=== PATIENT | female | born 1960 | race American Indian/Alaskan Native ===

== ENCOUNTER 2023-10-26 08:16 | Inpatient (IN) ==
[2023-10-26] MEDS ORDERED: IOPAMIDOL 100 ML BOTTLE IV ONE (08:17)
[2023-10-26 09:45] LABS: Basophils # (Auto) 0.03 K/mcL (0.00-0.30); Basophils % (Auto) 0.6 % (0.0-2.0); Eosinophils # (Auto) 0.07 K/mcL (0.00-0.70); Eosinophils % (Auto) 1.4 % (0.0-7.0); Hematocrit 50.3 % (34.1-44.9); Hemoglobin 16.2 g/dL (11.2-15.7); Lymphocytes # (Auto) 1.51 K/mcL (1.50-4.80); Lymphocytes % (Auto) 30.4 % (15.5-49.0); Mean Cell Volume 95.4 fL (80.0-100.0); Mean Corpuscular HGB Conc 32.2 g/dL (31.0-36.0); Mean Platelet Volume 11.9 fL (8.8-12.5); Monocytes # (Auto) 0.36 K/mcL (0.10-0.90); Monocytes % (Auto) 7.2 % (1.0-12.0); Neutrophils % (Auto) 60.2 % (38.0-78.0); Platelet Count 134 K/mcL (140-440); RBC 5.27 M/mcL (3.59-5.38); Red Cell Distribution Width 16.3 % (11.5-14.5)
[2023-10-26 09:57] LABS: ALT/SGPT < 5 U/L (<40); AST/SGOT 34 U/L (<32); Albumin 4.2 gm/dL (3.2-5.2); Albumin/Globulin Ratio 1.1 (1.0-2.3); Alkaline Phosphatase 93 U/L (39-117); Bilirubin,Total 2.2 mg/dL (0.1-1.0); Blood Urea Nitrogen 14 mg/dL (8-23); Calcium 9.3 mg/dL (8.6-10.4); Carbon Dioxide 23 mmol/L (22-30); Chloride 106 mmol/L (96-108); Globulin 3.7 gm/dL (2.2-3.7); Glomerular Filtration Rate 101; Glucose 90 mg/dL (70-105)
[2023-10-26 10:49] LABS: INR 1.2 (0.9-1.1); Partial Thromboplastin Time 36.3 sec (20.0-37.0); Prothrombin Time 15.9 sec (11.9-14.5)
[2023-10-26] MEDS: FUROSEMIDE 20 MG/2 ML VIAL IV ONE (11:41)
[2023-10-26] MEDS: SENNOSIDES/DOCUSATE SODIUM 1 TAB TABLET PO ONE (11:41)
[2023-10-26] MEDS ORDERED: ACETAMINOPHEN 325 MG TABLET PO PRN (17:04)
[2023-10-26] MEDS ORDERED: ONDANSETRON 4 MG/2 ML VIAL IV PRN (17:04)
[2023-10-26] MEDS: 0.9 % SODIUM CHLORIDE 10 ML SYRINGE IV SCH (20:04)
[2023-10-26] MEDS: DOCUSATE SODIUM 100 MG CAPSULE PO SCH (20:04)
[2023-10-26] MEDS: FUROSEMIDE 40 MG/4 ML VIAL IV SCH (20:04)
[2023-10-26] MEDS: HEPARIN 5,000 UNIT/ML VIAL SQ SCH (20:04)
[2023-10-26] MEDS: CARVEDILOL 12.5 MG TABLET PO SCH (23:20)
[2023-10-26] MEDS: CARVEDILOL 6.25 MG TABLET ONE (23:23)
[2023-10-26 23:40] LABS: Blood Urea Nitrogen 12 mg/dL (8-23); Calcium 9.5 mg/dL (8.6-10.4); Carbon Dioxide 30 mmol/L (22-30); Chloride 100 mmol/L (96-108); Glomerular Filtration Rate 95; Glucose 88 mg/dL (70-105)
[2023-10-27] MEDS: MAGNESIUM SULFATE 1 GM/100 ML BAG IV ONE (00:24)
[2023-10-27] MEDS: POTASSIUM CHLORIDE 20 MEQ TABLET PO ONE ×2 (00:25→02:44)
[2023-10-27 06:26] LABS: Basophils # (Auto) 0.03 K/mcL (0.00-0.30); Basophils % (Auto) 0.8 % (0.0-2.0); Eosinophils # (Auto) 0.04 K/mcL (0.00-0.70); Eosinophils % (Auto) 1.1 % (0.0-7.0); Hematocrit 47.2 % (34.1-44.9); Hemoglobin 15.2 g/dL (11.2-15.7); Lymphocytes # (Auto) 0.62 K/mcL (1.50-4.80); Lymphocytes % (Auto) 16.7 % (15.5-49.0); Mean Cell Volume 95.4 fL (80.0-100.0); Mean Corpuscular HGB Conc 32.2 g/dL (31.0-36.0); Mean Platelet Volume 12.3 fL (8.8-12.5); Monocytes # (Auto) 0.33 K/mcL (0.10-0.90); Monocytes % (Auto) 8.9 % (1.0-12.0); Neutrophils % (Auto) 72.2 % (38.0-78.0); Platelet Count 111 K/mcL (140-440); RBC 4.95 M/mcL (3.59-5.38); Red Cell Distribution Width 16.1 % (11.5-14.5); WBC 3.7 K/mcL (4.5-11.0)
[2023-10-27 06:36] LABS: ALT/SGPT < 5 U/L (<40); AST/SGOT 31 U/L (<32); Albumin 3.7 gm/dL (3.2-5.2); Albumin/Globulin Ratio 1.2 (1.0-2.3); Alkaline Phosphatase 74 U/L (39-117); Bilirubin,Total 2.1 mg/dL (0.1-1.0); Blood Urea Nitrogen 11 mg/dL (8-23); Carbon Dioxide 30 mmol/L (22-30); Chloride 103 mmol/L (96-108); Globulin 3.2 gm/dL (2.2-3.7); Glomerular Filtration Rate 101; Glucose 79 mg/dL (70-105)
[2023-10-27 06:38] LABS: Thyroid Stimulating Hormone 0.63 uIU/mL (0.27-5.01)
[2023-10-27] MEDS: MAGNESIUM HYDROXIDE 30 ML ORAL.SUSP PO SCH (20:23)
[2023-10-27 23:28] LABS: Blood Urea Nitrogen 16 mg/dL (8-23); Calcium 9.4 mg/dL (8.6-10.4); Carbon Dioxide 33 mmol/L (22-30); Chloride 101 mmol/L (96-108); Glomerular Filtration Rate 95; Glucose 113 mg/dL (70-105)
[2023-10-28 06:31] LABS: Basophils # (Auto) 0.02 K/mcL (0.00-0.30); Basophils % (Auto) 0.5 % (0.0-2.0); Eosinophils # (Auto) 0.11 K/mcL (0.00-0.70); Eosinophils % (Auto) 2.9 % (0.0-7.0); Hematocrit 47.3 % (34.1-44.9); Hemoglobin 14.8 g/dL (11.2-15.7); Lymphocytes # (Auto) 0.85 K/mcL (1.50-4.80); Lymphocytes % (Auto) 22.4 % (15.5-49.0); Mean Cell Volume 97.9 fL (80.0-100.0); Mean Corpuscular HGB Conc 31.3 g/dL (31.0-36.0); Mean Platelet Volume 11.7 fL (8.8-12.5); Monocytes # (Auto) 0.42 K/mcL (0.10-0.90); Monocytes % (Auto) 11.1 % (1.0-12.0); Neutrophils % (Auto) 62.8 % (38.0-78.0); Platelet Count 106 K/mcL (140-440); RBC 4.83 M/mcL (3.59-5.38); Red Cell Distribution Width 16.1 % (11.5-14.5); WBC 3.8 K/mcL (4.5-11.0)
[2023-10-28 07:01] LABS: ALT/SGPT < 5 U/L (<40); AST/SGOT 25 U/L (<32); Albumin 3.7 gm/dL (3.2-5.2); Albumin/Globulin Ratio 1.2 (1.0-2.3); Alkaline Phosphatase 70 U/L (39-117); Bilirubin,Total 1.4 mg/dL (0.1-1.0); Blood Urea Nitrogen 16 mg/dL (8-23); Carbon Dioxide 31 mmol/L (22-30); Chloride 101 mmol/L (96-108); Glomerular Filtration Rate 101; Glucose 79 mg/dL (70-105)
[2023-10-28] MEDS: POTASSIUM CHLORIDE 20 MEQ TABLET PO ONE ×2 (08:25→12:21)
[2023-10-28] MEDS: LOSARTAN 25 MG TABLET PO SCH (08:50)
[2023-10-29 06:51] LABS: Basophils # (Auto) 0.03 K/mcL (0.00-0.30); Basophils % (Auto) 0.9 % (0.0-2.0); Eosinophils # (Auto) 0.09 K/mcL (0.00-0.70); Eosinophils % (Auto) 2.6 % (0.0-7.0); Hematocrit 47.2 % (34.1-44.9); Hemoglobin 14.7 g/dL (11.2-15.7); Lymphocytes # (Auto) 1.06 K/mcL (1.50-4.80); Lymphocytes % (Auto) 30.2 % (15.5-49.0); Mean Cell Volume 98.3 fL (80.0-100.0); Mean Corpuscular HGB Conc 31.1 g/dL (31.0-36.0); Mean Platelet Volume 12.1 fL (8.8-12.5); Monocytes # (Auto) 0.43 K/mcL (0.10-0.90); Monocytes % (Auto) 12.3 % (1.0-12.0); Platelet Count 110 K/mcL (140-440); Red Cell Distribution Width 15.9 % (11.5-14.5); WBC 3.5 K/mcL (4.5-11.0)
[2023-10-29 07:12] LABS: ALT/SGPT < 5 U/L (<40); AST/SGOT 25 U/L (<32); Albumin 3.6 gm/dL (3.2-5.2); Albumin/Globulin Ratio 1.2 (1.0-2.3); Alkaline Phosphatase 73 U/L (39-117); Bilirubin,Direct 0.5 mg/dL (<0.3); Blood Urea Nitrogen 20 mg/dL (8-23); Carbon Dioxide 33 mmol/L (22-30); Chloride 102 mmol/L (96-108); Globulin 3.1 gm/dL (2.2-3.7); Glomerular Filtration Rate 101; Glucose 79 mg/dL (70-105); Lactate Dehydrogenase 211 U/L (135-225); Phosphorous 4.6 mg/dL (2.5-4.5); Triglycerides 78 mg/dL (<150); Uric Acid 7.1 mg/dL (2.5-8.0)
[2023-10-29] MEDS: CARVEDILOL 3.125 MG TABLET PO ONE (17:19)
[2023-10-29] MEDS ORDERED: CARVEDILOL 12.5 MG TABLET PO SCH (17:30)
[2023-10-30 06:11] LABS: Basophils # (Auto) 0.03 K/mcL (0.00-0.30); Basophils % (Auto) 0.9 % (0.0-2.0); Eosinophils % (Auto) 2.9 % (0.0-7.0); Hematocrit 47.4 % (34.1-44.9); Hemoglobin 14.6 g/dL (11.2-15.7); Lymphocytes # (Auto) 0.98 K/mcL (1.50-4.80); Lymphocytes % (Auto) 28.5 % (15.5-49.0); Mean Cell Volume 99.8 fL (80.0-100.0); Mean Corpuscular HGB Conc 30.8 g/dL (31.0-36.0); Mean Platelet Volume 12.2 fL (8.8-12.5); Monocytes # (Auto) 0.41 K/mcL (0.10-0.90); Monocytes % (Auto) 11.9 % (1.0-12.0); Neutrophils % (Auto) 55.5 % (38.0-78.0); Platelet Count 104 K/mcL (140-440); RBC 4.75 M/mcL (3.59-5.38); Red Cell Distribution Width 15.7 % (11.5-14.5); WBC 3.4 K/mcL (4.5-11.0)
[2023-10-30] MEDS: CARVEDILOL 12.5 MG TABLET PO SCH (07:37)
[2023-10-30] MEDS: FUROSEMIDE 40 MG TABLET PO SCH (09:21)
== END 2023-10-30 12:45 | disposition home or self-care (01) | DRG 291 ==
LOC: ED 08:16 → ICU 17:00
PROVIDERS: ADMIT Student in an Organized Health Care Education/Training Program; ATTEND Student in an Organized Health Care Education/Training Program